=== PATIENT | male | born 1985 | race Caucasian/White ===

== ENCOUNTER 2017-06-30 02:34 | Emergency (ER) | payer MEDICARE, MEDICAID ==
--- NOTE | ~2017-06-30 | ER ---
PATIENT'S NAME: RAMIREZ RUBALCAVA [facility] AGE: 32 Y [address] ROOM: [place] [id number] LOCATION: [facility] ADMIT DATE: 06/30/2017 ER/Outpatient Report DISCHARGE DATE: 06/30/2017 FAMILY PHYSICIAN: PHYSICIAN, NO ATTENDING PHYSICIAN: Holland Ovalle Admission date and time documented on the medical record. I saw the patient at 0250 hours. CHIEF COMPLAINT: Left wrist injury. HISTORY OF PRESENT ILLNESS: This patient is a 32-year-old male, who fell landing on a cement injuring his left wrist. He had some abrasion to the palmar surface of his left hand involving the thenar eminence and hypothenar eminence. Minimal swelling if any. No other injuries. No other complaints. HOME MEDICATIONS: None. ALLERGIES: NONE. SOCIAL HISTORY: The patient smokes a pack of cigarettes per day. Does smoke marijuana, nondrinker. SIGNIFICANT PAST MEDICAL HISTORY: Tobacco abuse, marijuana abuse, otherwise negative. OPERATIONS: None. REVIEW OF SYSTEMS: All systems reviewed by me are negative with the exception of those discussed in the history of present illness. PHYSICAL EXAMINATION: VITAL SIGNS: Temperature 97.1, tympanic; pulse 65; respirations 16; blood pressure 137/80; O2 saturation on room air is 99%. EXTREMITIES: On examination of the left wrist, he has good range of motion of the wrist, fingers, elbow, shoulder. Minimal swelling of the wrist. No deformity on visual inspection. He has a mild abrasion to the base of his hand. No lacerations. PATIENT'S NAME: RAMIREZ RUBALCAVA [facility] AGE: 32 Y [address] ROOM: [place] [id number] LOCATION: [facility] ADMIT DATE: 06/30/2017 ER/Outpatient Report DISCHARGE DATE: 06/30/2017 FAMILY PHYSICIAN: PHYSICIAN, NO ATTENDING PHYSICIAN: Holland Ovalle NEUROVASCULAR: Intact. Pulses are intact. LABORATORY DATA: X-rays showed no fracture or dislocation. We will review x-ray with radiologist. IMPRESSION: Fall with injury, left wrist. No evidence of fracture on x-ray. PLAN: The patient was placed in a cock-up wrist splint, left wrist. Discharged home. Observation. Activity as tolerated. Ice and elevation intermittently as needed. Aleve, ibuprofen, or Tylenol as needed for pain. Follow up with personal physician as needed. Discussion ensued with the patient concerning my findings and recommendations, he understands. MD MILY YAN/samml /[id number] d: 06/30/17 0327 t: 06/30/17 1809, OUTPATIENT REPORT
== END 2017-06-30 02:59 | disposition disaster alternative care site (69) ==
LOC: GACC 02:34
PROC: 2W3DX1Z Immobilization of Left Lower Arm using Splint (ICD-10-PCS; principal; 2017-06-30)
DX: S60.512A Abrasion of left hand, initial encounter (principal); F17.210 Nicotine dependence, cigarettes, uncomplicated; F12.10 Cannabis abuse, uncomplicated; W19.XXXA Unspecified fall, initial encounter